=== PATIENT | female | born 1960 | race Caucasian/White ===

== ENCOUNTER 2020-12-27 18:25 | Inpatient (IN) | payer MEDICAID ==
[~2020-12-27] VITALS: Ht 162.6 cm; Wt 72.5 kg
[2020-12-27 18:39] VITALS: BP 101/71
[2020-12-27 19:23] LABS: MPV 9.9 fl. (7.2-11.1)
[2020-12-27 19:25] LABS: HEMATOCRIT 36.2 % (37.0-47.0); HEMOGLOBIN 11.8 gm/dL (12.0-15.0); MCHC 32.6 g/dL (28.0-37.0); MCV 85.7 fL (80.0-100.0); NUCLEATED RBCS 0 /100WBC; PLATELET COUNT* 404 thou/uL (150-400); RBC 4.23 mil/uL (4.20-5.00); RDW-CV 14.8 % (10.5-14.5); WBC 28.8 thou/uL (4.0-11.0)
[2020-12-27 19:33] LABS: CREATININE 0.9 mg/dL (0.6-1.3); POTASSIUM 3.3 mmol/L (3.5-5.1)
[2020-12-27 19:38] LABS: ALBUMIN 2.3 g/dL (3.4-5.0); TOTAL BILIRUBIN 0.5 mg/dL (<0.1-1.0); TOTAL PROTEIN 7.1 g/dL (6.4-8.2)
[2020-12-27 19:44] LABS: ABSOLUTE LYMPHOCYTES 1.7 thou/uL (0.8-5.3); ABSOLUTE MONOCYTES 0.9 thou/uL (0.0-1.2); ABSOLUTE NEUTROPHILS 26.2 thou/uL (1.6-8.1); PLATELET ESTIMATE INCREASED
[2020-12-28 00:15] VITALS: BP 113/49
[2020-12-28 01:37] LABS: CALCIUM 8.2 mg/dL (8.5-10.1); CREATININE 0.8 mg/dL (0.6-1.3); POTASSIUM 3.3 mmol/L (3.5-5.1)
[2020-12-28 01:41] LABS: MAGNESIUM 1.7 mg/dL (1.8-2.4); PHOSPHORUS* 2.7 mg/dL (2.5-4.9)
[2020-12-28 03:26] LABS: URINE BILIRUBIN NEGATIVE (Negative); URINE BLOOD 3+ (Negative); URINE CLARITY CLEAR; URINE COLOR YELLOW; URINE GLUCOSE-RANDOM NEGATIVE (Negative); URINE KETONES NEGATIVE (Negative); URINE LEUKOCYTES-REFLEX NEGATIVE (Negative); URINE NITRITE-REFLEX NEGATIVE (Negative); URINE PROTEIN TRACE (Negative); URINE SPECIFIC GRAVITY 1.025 (1.005-1.030); URINE UROBILINOGEN 0.2 E.U./dl (0.2-1.0)
[2020-12-28 03:33] LABS: AMP/METHAMP POSITIVE (Negative); BARBITURATES Negative (Negative); BENZODIAZEPINES POSITIVE (Negative); COCAINE Negative (Negative); METHADONE Negative (Negative); OPIATES POSITIVE (Negative); PCP Negative (Negative); THC Negative (Negative)
[2020-12-28 04:15] VITALS: BP 107/49
[2020-12-28 04:39] LABS: HYALINE CASTS 0-3 Few /LPF (None Seen); SQUAMOUS 0-3 Few /LPF (0-3)
[2020-12-28 04:40] LABS: BACTERIA-REFLEX 1-9 Few /HPF (None Seen); CRYSTALS None Seen /LPF (None Seen); URINE WBC-REFLEX 0-5 Rare /HPF (0-5)
[2020-12-28 07:51] VITALS: BP 100/54
[2020-12-28 11:41] VITALS: BP 119/38
--- NOTE | 2020-12-28 13:02 | EKG ---
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: [place] : 1960 Requested By: Ewelina Santos Order Number: [id number] MD: Galileo Callaway Measurements Intervals [place] Rate: 99 P: 70 TX: 150 QRS: 40 QRSD: 69 T: 178 QT: 290 QTc: 373 Interpretive Statements Sinus rhythm Left atrial enlargement Borderline repolarization abnormality No previous ECG available for comparison Electronically Signed On 12-28-2020 13:02:29 CDT by Galileo Callaway [email or web address] <ELECTRONICALLY SIGNED> By: Galileo Callaway MD, FAC 12/28/20 1302 17 17 Galileo Callaway MD, [facility] /EPI
[2020-12-28 14:13] VITALS: BP 108/59
[2020-12-28 20:00] VITALS: BP 96/55
[2020-12-29] VITALS: BP 101/52
[2020-12-29 04:00] VITALS: BP 109/53
[2020-12-29 08:00] VITALS: BP 100/60; BP 119/53
[2020-12-29 08:59] LABS: ABSOLUTE LYMPHOCYTES 1.3 thou/uL (0.8-5.3); ABSOLUTE MONOCYTES 1.6 thou/uL (0.0-1.2); ABSOLUTE NEUTROPHILS 15.4 thou/uL (1.6-8.1); BASOPHILS 0.2 %; EOSINOPHILS 0.1 %; HEMATOCRIT 29.4 % (37.0-47.0); LYMPHOCYTES 6.9 %; MCHC 32.6 g/dL (28.0-37.0); MCV 85.9 fL (80.0-100.0); MONOCYTES 8.5 %; MPV 9.3 fl. (7.2-11.1); NUCLEATED RBCS 0 /100WBC; PLATELET COUNT* 370 thou/uL (150-400); POLYS 84.3 %; RBC 3.42 mil/uL (4.20-5.00); RDW-CV 14.7 % (10.5-14.5); WBC 18.3 thou/uL (4.0-11.0)
[2020-12-29 09:03] LABS: HEMOGLOBIN 9.6 gm/dL (12.0-15.0)
[2020-12-29 09:18] LABS: CALCIUM 8.1 mg/dL (8.5-10.1); CREATININE 0.5 mg/dL (0.6-1.3); POTASSIUM 4.2 mmol/L (3.5-5.1)
[2020-12-29 09:22] LABS: ALBUMIN 1.5 g/dL (3.4-5.0); MAGNESIUM 1.6 mg/dL (1.8-2.4); TOTAL BILIRUBIN 0.5 mg/dL (<0.1-1.0); TOTAL PROTEIN 5.1 g/dL (6.4-8.2)
[2020-12-29 12:00] VITALS: BP 119/53
[2020-12-29 20:00] VITALS: BP 113/53
[2020-12-29 23:58] VITALS: BP 108/57
[2020-12-30 03:30] VITALS: BP 100/56
[2020-12-30 07:30] VITALS: BP 159/87
[2020-12-30 08:15] VITALS: BP 111/61
[2020-12-30 09:53] LABS: HEMATOCRIT 26.4 % (37.0-47.0); HEMOGLOBIN 8.5 gm/dL (12.0-15.0); MCH 27.4 pg (26.0-34.0); MCHC 32.2 g/dL (28.0-37.0); MCV 85.1 fL (80.0-100.0); MPV 9.7 fl. (7.2-11.1); NUCLEATED RBCS 0 /100WBC; PLATELET COUNT* 397 thou/uL (150-400); RDW-CV 14.9 % (10.5-14.5); WBC 16.7 thou/uL (4.0-11.0)
[2020-12-30 09:55] LABS: CALCIUM 8.1 mg/dL (8.5-10.1); CREATININE 0.5 mg/dL (0.6-1.3); MAGNESIUM 1.6 mg/dL (1.8-2.4); POTASSIUM 4.3 mmol/L (3.5-5.1)
[2020-12-30 10:25] LABS: ABSOLUTE LYMPHOCYTES 0.3 thou/uL (0.8-5.3); ABSOLUTE MONOCYTES 0.7 thou/uL (0.0-1.2); ABSOLUTE NEUTROPHILS 15.7 thou/uL (1.6-8.1); ANISOCYTOSIS 1+; PLATELET ESTIMATE ADEQUATE; POIKILOCYTOSIS 1+
[2020-12-30 11:36] VITALS: BP 12/64
--- NOTE | 2020-12-30 16:03 | OP ---
[facility] [address] [place] [address] OPERATIVE REPORT Name: TARI BURTON Room: [address] IN M.R.#: [id number] Admission: 12/27/20 Attend Phys: Darren Ibrahim Discharge: Date of : 64 Report #: [id number] THIS REPORT FOR: cc: FAM - No family physician/PCP FAM - No family physician/PCP ~ Cleve Ledesma DO DATE OF SERVICE: 12/29/2020 PREOPERATIVE DIAGNOSIS: Abscess to the right shoulder, extending through the upper arm, rule out deltoid intramuscular abscess and/or sarcoma. POSTOPERATIVE DIAGNOSES: Abscess to the right shoulder, extending through the upper arm, rule out deltoid intramuscular abscess and/or sarcoma. SURGERY PERFORMED: 1. Right shoulder surgical incision and debridement of the shoulder from 7 cm x 6 cm to the bone through a torn deltoid abscess in the posterolateral position. 2. Deltoid biopsy x 2 to rule out sarcoma or other mass. 3. Right upper arm surgical incision and debridement 16 cm x 8 cm ____ bone through the brachialis and brachii muscle of the right upper arm with severely incorporated intramuscular abscess as well as subcutaneous abscess throughout that entire distance extending also posterolaterally toward the triceps all in the subcutaneous plane. Surgery was lavaged with 6000 mL of normal saline through the entire surgical sites, proximal and more distal. 1. Tissue biopsies for rule out mass. 2. Tissue cultures, both of the shoulder area and the anterior area of the arm. The patient also had purulent fluid that was cultured anteriorly and from the shoulder. ANESTHESIA: General. ESTIMATED BLOOD LOSS: 100 mL, did receive 1 gram of TXA preoperatively as well. She has been on scheduled antibiotics. COMPLICATIONS: No complications. Hemovac drain x 2 to the right upper extremity. DESCRIPTION OF PROCEDURE: Prior to surgery, the patient is a known IV drug abuser. She did have multiple areas of abscess that had broken through the skin and was draining purulent material from the anterior upper arm region extending just above the elbow approximately 2 inches as where it started and extended all the way up anteriorly extending slightly posterolaterally [place] [address] OPERATIVE REPORT Name: TUSHARTARI BEARD Room: [address] IN [facility].#: [id number] Admission: 12/27/20 Attend Phys: Darren Ibrahim Discharge: Date of : 64 Report #: [id number] puncture sites that are broken through. The deltoid had a large palpable soft tissue fluid contour as well in the posterolateral aspect of the deltoid region. The patient's intraoperative findings correlated with large abscess through the deltoid muscle actually had pulled off of the acromion, it had split at least 4 cm in length from the acromion distally as well as extending the edges then and separation about 4 cm. Necrotic tissue was noted beneath that as well. On the anterior approach multiple areas of necrotic tissue through the brachii muscle was noted and brachialis and this was all excised as well. Thick white purulence was noted throughout this entire surgical site. There was no bony destructive changes. Rotator cuff was definitely intact as well. SURGERY IN DETAIL: The patient was taken to the operating room and placed on the table again the benefit of general anesthetic underwent a Betadine scrub and Betadine wash as well as sterile drape in her right upper extremity. Surgery timeout was called and verified by everyone in the room. I extended proximally and started their first made a longitudinal incision right over the palpable mass area starting at the acromion and extending distally. Care was taken not to go below 5 cm to protect that axillary nerve. Once the standard subcutaneous plane large amount of purulent fluid was cultured. I did go ahead and sucked out as much of that purulence as I could to the subcutaneous plane, I found the deltoid. Two samples of tissue were taken, one anteriorly and one posteriorly from the deltoid and sent off for pathology for permanent. #2 I did do tissue cultures and then deep that was noted in the bursal region as well as that upper arm area that was necrotic on the posterior deltoid area. This all area was cleaned out very good by scissors technique by massaging and by curettage. I got down to healthy viable tissue at this plane. Now, I went through the anterior aspect of the arm and made a longitudinal incision just above the elbow extending proximally as stated and I did extend that for at least 16 cm through skin and subcutaneous tissues. There were necrotic edges that where the abscess broke through were all excised by sharp dissection. Scissors were used to remove all the necrotic muscle that was noted in this region in multiple areas. I got down to nice healthy, pink, viable muscle. This area was then copiously irrigated with normal saline again, at least 5000 mL to clean smooth surface from the top to bottom. Once this was all done, I did go ahead and placed two Hemovac drains deep within these wound areas bringing out the catheters distally. I closed her ulnar with Prolene suture to the skin. It was incised. Xeroform, 4 x 4's, Kerlix, Mike wrap dressing applied to the upper extremity. This patient was transferred to the table and taken to recovery in stable condition. All needle, instrument, and sponge counts correct. The patient most definitely had an abscess through the entire upper extremity that was subcutaneous planes connected as well as the abscess through the deltoid muscle was noted, which was completely debrided as well as the brachii muscles of the upper extremity [place] [address] OPERATIVE REPORT Name: TARI BURTON Room: [address] IN .R.#: [id number] Admission: 12/27/20 Attend Phys: Darren Ibrahim Discharge: Date of : 64 Report #: [id number] I attest I was present for all critical aspects of surgery. Needle, instrument, and sponge counts were correct. <ELECTRONICALLY SIGNED> By: Cleve Ledesma DO 12/30/20 1603 1525 1623Croshni Ledesma DO /jonathan
[2020-12-30 16:13] VITALS: BP 95/57
[2020-12-30 17:07] LABS: HIV-1/HIV-2 ANTIBODY Non Reactive (Non Reactive)
[2020-12-30 19:30] VITALS: BP 100/56
[2020-12-31] VITALS: BP 128/52
[2020-12-31 08:17] VITALS: BP 114/63
[2020-12-31 11:37] VITALS: BP 120/79
[2020-12-31 11:51] LABS: HEMATOCRIT 27.6 % (37.0-47.0); HEMOGLOBIN 8.8 gm/dL (12.0-15.0); MCH 27.4 pg (26.0-34.0); MCHC 31.8 g/dL (28.0-37.0); MCV 86.3 fL (80.0-100.0); MPV 9.3 fl. (7.2-11.1); RBC 3.2 mil/uL (4.20-5.00); RDW-CV 15.2 % (10.5-14.5); WBC 13.3 thou/uL (4.0-11.0)
[2020-12-31 11:58] LABS: CALCIUM 8.6 mg/dL (8.5-10.1); CREATININE 0.6 mg/dL (0.6-1.3); MAGNESIUM 1.8 mg/dL (1.8-2.4); PHOSPHORUS* 2.8 mg/dL (2.5-4.9); POTASSIUM 4.3 mmol/L (3.5-5.1)
[2020-12-31 16:04] VITALS: BP 109/53
[2020-12-31 19:30] VITALS: BP 109/63
[2020-12-31 23:17] VITALS: BP 111/70
[2021-01-01 04:32] VITALS: BP 118/71; BP 135/94
[2021-01-01 04:39] VITALS: BP 135/94
[2021-01-01 05:45] LABS: HEMATOCRIT 25.5 % (37.0-47.0); HEMOGLOBIN 8.4 gm/dL (12.0-15.0); MCH 27.9 pg (26.0-34.0); MCHC 33.1 g/dL (28.0-37.0); MCV 84.4 fL (80.0-100.0); MPV 8.3 fl. (7.2-11.1); RBC 3.02 mil/uL (4.20-5.00); RDW-CV 14.9 % (10.5-14.5); WBC 11.4 thou/uL (4.0-11.0)
[2021-01-01 06:05] LABS: CALCIUM 8.2 mg/dL (8.5-10.1); CREATININE 0.5 mg/dL (0.6-1.3); POTASSIUM 3.9 mmol/L (3.5-5.1)
[2021-01-01 07:20] VITALS: BP 119/92
[2021-01-01 11:39] VITALS: BP 128/85
[2021-01-01 15:49] VITALS: BP 177/105
[2021-01-01 20:00] VITALS: BP 116/64
[2021-01-02 00:06] VITALS: BP 105/61
[2021-01-02 03:53] VITALS: BP 120/80
[2021-01-02 08:26] VITALS: BP 126/69
[2021-01-02 11:44] VITALS: BP 126/69
[2021-01-02 12:03] LABS: ABSOLUTE BASOPHILS 0.1 thou/uL (0.0-0.2); ABSOLUTE EOSINOPHILS 0.1 thou/uL (0.0-0.7); ABSOLUTE LYMPHOCYTES 1.6 thou/uL (0.8-5.3); ABSOLUTE MONOCYTES 0.9 thou/uL (0.0-1.2); ABSOLUTE NEUTROPHILS 10.7 thou/uL (1.6-8.1); BASOPHILS 0.5 %; EOSINOPHILS 0.7 %; HEMATOCRIT 27.6 % (37.0-47.0); HEMOGLOBIN 9.1 gm/dL (12.0-15.0); LYMPHOCYTES 12.1 %; MCH 27.8 pg (26.0-34.0); MCV 84.2 fL (80.0-100.0); MONOCYTES 6.8 %; MPV 8.3 fl. (7.2-11.1); NUCLEATED RBCS 0 /100WBC; POLYS 79.9 %; RBC 3.28 mil/uL (4.20-5.00); RDW-CV 14.6 % (10.5-14.5); WBC 13.4 thou/uL (4.0-11.0)
[2021-01-02 12:05] LABS: PLATELET COUNT* 731 thou/uL (150-400)
[2021-01-02 12:20] LABS: ALBUMIN 1.9 g/dL (3.4-5.0); CALCIUM 8.3 mg/dL (8.5-10.1); CREATININE 0.6 mg/dL (0.6-1.3); POTASSIUM 4.2 mmol/L (3.5-5.1); TOTAL BILIRUBIN 0.2 mg/dL (<0.1-1.0); TOTAL PROTEIN 6.2 g/dL (6.4-8.2)
[2021-01-02 18:24] VITALS: BP 130/78
[2021-01-02 20:00] VITALS: BP 154/67
[2021-01-03 00:34] VITALS: BP 118/64
[2021-01-03 04:00] VITALS: BP 126/72
[2021-01-03 05:31] LABS: CALCIUM 8.3 mg/dL (8.5-10.1); CREATININE 0.6 mg/dL (0.6-1.3); POTASSIUM 3.6 mmol/L (3.5-5.1)
[2021-01-03 05:38] LABS: HEMOGLOBIN 7.8 gm/dL (12.0-15.0); MCH 27.9 pg (26.0-34.0); MCHC 32.4 g/dL (28.0-37.0); MPV 9.1 fl. (7.2-11.1); RBC 2.79 mil/uL (4.20-5.00); RDW-CV 14.7 % (10.5-14.5); WBC 10.3 thou/uL (4.0-11.0)
[2021-01-03 08:05] VITALS: BP 146/78
[2021-01-03 12:15] VITALS: BP 156/68
--- NOTE | 2021-01-03 17:07 | PATH ---
[address] [address] PATHOLOGY RPT PROCEDURE Name: GONZALEZPAKOTARI Room: [address] IN M.R.#: [id number] Admission: 12/27/20 Date of : 64 Discharge: Report #: [id number] Path Case #: [id number] [facility] Accession Number: [id number] . 01 Material submitted: . arm - TISSUE LATERAL DELTOID RIGHT ARM. Modifiers: lateral, right, DELTOID . 01 Clinical history: . INCISION AND DRAINAGE EXTREMITY WITH IRRIGATION INFECTION RIGHT UPPER ARM R/O MASS SARCOMA CELLULITIS RIGHT UPPER ARM, SEPSIS . 02 Diagnosis: Tissue lateral deltoid right arm: - Benign skeletal muscle and fibrofatty tissue with necrosis and extensive acute inflammation. (LUKE/db; 01/03/2021) LBQ 01/03/2021 1330 Local . 02 Electronically signed: . John Schaeffer MD, Pathologist NPI- [id number] . 01 Gross description: . The specimen is received in formalin, labeled "TARI BURTON, and tissue lateral deltoid right arm rule out mass sarcoma" and consists of 5 irregular fragments of soft bauer-mayen tissue with the largest possibly covered by skin. The fragments range from 1.5 x 1 x 0.2 cm up to 3 x 1.5 x 1.1 cm. All fragments are inked black. The cut surfaces are mayen and focally congested. Entirely submitted in 7 cassettes. A1-A5 smaller fragments A6-A7 largest fragment(ML; 12/31/2020) LAMBERT/LAMBERT 01/03/2021 1329 Local . 02 Pathologist provided ICD-10: M60.9 . 02 CPT . 556062 Specimen Comment: A courtesy copy of this report has been sent to [phone] Specimen Comment: [phone] Specimen Comment: Report sent to / DR ACOSTA Performed at: [address] [facility], [place] [id number] MD Angel Kenney MD Phone: [phone] [place] [address] PATHOLOGY RPT PROCEDURE Name: TARI BURTON Room: [address] IN [facility].#: [id number] Admission: 12/27/20 Date of : 64 Discharge: Report #: [id number] Path Case #: [id number] Performed at: 02 [facility] Dain Lagunas [address], [place] [id number] MD John cShaeffer MD Phone: [phone]
[2021-01-03 20:00] VITALS: BP 125/83
[2021-01-04] VITALS (8 sets, daily range): BP systolic 100–125; BP diastolic 49–69
[2021-01-04 04:08] LABS: CALCIUM 7.8 mg/dL (8.5-10.1); CREATININE 0.7 mg/dL (0.6-1.3); POTASSIUM 3.8 mmol/L (3.5-5.1)
[2021-01-04 04:09] LABS: RBC 2.47 mil/uL (4.20-5.00)
[2021-01-04 04:29] LABS: HEMATOCRIT 20.9 % (37.0-47.0); MCH 27.8 pg (26.0-34.0); MCHC 32.9 g/dL (28.0-37.0); MCV 84.6 fL (80.0-100.0); PLATELET COUNT* 646 thou/uL (150-400); RDW-CV 14.6 % (10.5-14.5); WBC 12.4 thou/uL (4.0-11.0)
[2021-01-04 04:52] LABS: HEMOGLOBIN 6.9 gm/dL (12.0-15.0)
[2021-01-04 09:54] LABS: ABSOLUTE LYMPHOCYTES 1.2 thou/uL (0.8-5.3); ABSOLUTE MONOCYTES 0.9 thou/uL (0.0-1.2); ABSOLUTE NEUTROPHILS 10.3 thou/uL (1.6-8.1); EOSINOPHILS 0.1 %; LYMPHOCYTES 9.3 %; MONOCYTES 7.5 %; POLYS 83.1 %
[2021-01-04 13:39] LABS: HEMOGLOBIN 9.3 gm/dL (12.0-15.0)
[2021-01-05 00:01] VITALS: BP 121/73
[2021-01-05 04:12] VITALS: BP 120/66
[2021-01-05 04:49] LABS: CALCIUM 9.4 mg/dL (8.5-10.1); CREATININE 0.6 mg/dL (0.6-1.3); POTASSIUM 3.4 mmol/L (3.5-5.1)
[2021-01-05 05:00] LABS: HEMATOCRIT 24.8 % (37.0-47.0); HEMOGLOBIN 8.3 gm/dL (12.0-15.0); MCH 28.1 pg (26.0-34.0); MCHC 33.4 g/dL (28.0-37.0); MCV 84.1 fL (80.0-100.0); MPV 8.6 fl. (7.2-11.1); RBC 2.94 mil/uL (4.20-5.00); RDW-CV 15.1 % (10.5-14.5); WBC 10.6 thou/uL (4.0-11.0)
[2021-01-05 08:15] VITALS: BP 125/67
[2021-01-05] MEDS ORDERED: KEFLEX500 M1 PO (10:20)
[2021-01-05] MEDS ORDERED: ROXICODONE15 MG PO (10:20)
[2021-01-05] MEDS ORDERED: FLAGYL500 M1 PO (10:20)
[2021-01-05] MEDS ORDERED: ROCEPHIN 11 GM/1001 IV (10:24)
[2021-01-05 10:28] VITALS: BP 125/67
[2021-01-05 11:17] VITALS: BP 125/67
[2021-01-05 12:38] VITALS: BP 125/67
--- NOTE | 2021-01-06 13:58 | OP ---
[address] [address] OPERATIVE REPORT Name: TARI BURTON Room: [address] IN M.R.#: [id number] Admission: 12/27/20 Attend Phys: Darren Ibrahim Discharge: 01/05/21 Date of : 64 Report #: [id number] THIS REPORT FOR: cc: FAM - No family physician/PCP FAM - No family physician/PCP Cleve Ledesma DO ~ DATE OF SERVICE: 01/03/2021 PREOPERATIVE DIAGNOSES: Previous streptococcus infection of the right upper extremity with abscess to the right upper arm, anterior, posterior and deltoid region. POSTOPERATIVE DIAGNOSES: Previous streptococcus infection of the right upper extremity with abscess to the right upper arm, anterior, posterior and deltoid region. SURGERY PERFORMED: Excisional debridement of the necrotic skin edges with a delayed primary closure with repeat debridement deep and delayed closure. SURGEON: Cleve Ledesma DO LAPPING MACHINE TENDER: Edgar German DO SECOND TEXTILE COLORIST DYER: Blake Townsend DO ANESTHESIA: General anesthetic. The patient has been on scheduled antibiotics. ESTIMATED BLOOD LOSS: 50 mL. COMPLICATIONS: She has no complications. DRAINS: She has no drain. SPECIMENS: She has no specimens today. GROSS FINDINGS: On repeat examination of right upper arm before surgery while the patient was asleep demonstrated necrotic skin edges, both at the deltoid surgical site and the upper arm anterior surgical site. After removing the sutures, the deep area still did have some deeper necrosis at the superficial skin area, subcutaneous area, down to the level of the muscle with some very friable muscle edges that needed to be debrided as well anteriorly across the brachiae region. The patient still had intact neurovascular exam pre-surgery. The patient at this point in time did not have any proximal humerus deltoid muscle necrosis area today, just a friable area where the previous abscess [place] [address] OPERATIVE REPORT Name: TARI BURTON Room: [address] IN [facility]#: [id number] Admission: 12/27/20 Attend Phys: Darren Ibrahim Discharge: 01/05/21 Date of : 64 Report #: [id number] Surgery for excision and debridement: The patient was taken to the operating room and placed on table, given general anesthetic and placed in a beach chair position and underwent a Betadine scrub and paint and then a sterile draping for right upper extremity. Time-out was called and verified by everyone in the room. The excisional debridement by sharp dissection with a #15 blade scalpel, 10 blade scalpel through the skin and subcutaneous tissues of both the deltoid incision area, which was 7 cm long x 1.5 cm off each side was removed down to the deltoid muscle. The anterior skin edges, subcutaneous tissue was again a sharp debridement as well with a scalpel for a total of 13 cm in length, 0.5 cm off each side of that incision as well. SURGERY IN DETAIL: The patient was taken to the operating room and placed in the beach chair position after she was draped and the skin edges were debrided. We copiously irrigated the proximal aspect of the surgical site at the deltoid. Starting there, we removed some small and subcutaneous necrotic very friable areas that were already being compromised and so those were removed by rongeur. I eventually did close that deltoid with 0 Prolene suture x 2. I just jagged those skin edges with the abscess through it. The patient at the anterior aspect of the arm, we debrided that again deep with a rongeur. Nice healthy bleeding tissue was isolated. She was given one round of TXA intraoperatively. Hemostasis was easily maintained. Surgery continued then with a 12,000 mL normal saline irrigation lavage throughout both surgical sites proximal and distal. I did do 2-0 Monocryl initially to close subcutaneous layers and then 0 Prolene suture in [id number] fashion for better hold on her. Xeroform, 4 x 4s, Kerlix, ABD, Mike wrap dressing from the wrist to the shoulder area was applied. This will help secondary spacing. The patient was transferred off the table, taken to recovery in stable condition. I attest I was present for all critical aspects of surgery. Needle, instrument, sponge counts correct on the patient. She will be maintained on medications as the Infectious Disease has stated. <ELECTRONICALLY SIGNED> By: Cleve Ledesma DO 01/06/21 1358 1419 [id number] Ledesma DO /jonathan
== END 2021-01-05 12:55 | disposition home health service (06) | DRG 853 ==
LOC: M.ERS 18:25 → M.TBA-ER 20:27 → M.2W 12-28 14:25
PROVIDERS: Internal Medicine; Nurse Practitioner Family; Orthopaedic Surgery; ADMIT Internal Medicine; ATTEND Internal Medicine
DX: A41.9 Sepsis, unspecified organism (principal); A48.0 Gas gangrene; B19.21 Unspecified viral hepatitis C with hepatic coma; L03.113 Cellulitis of right upper limb; E87.1 Hypo-osmolality and hyponatremia; E44.0 Moderate protein-calorie malnutrition; L02.413 Cutaneous abscess of right upper limb; F17.210 Nicotine dependence, cigarettes, uncomplicated; J44.9 Chronic obstructive pulmonary disease, unspecified; E87.6 Hypokalemia; F41.9 Anxiety disorder, unspecified; N18.30 Chronic kidney disease, stage 3 unspecified; R73.9 Hyperglycemia, unspecified; F31.9 Bipolar disorder, unspecified; D64.9 Anemia, unspecified; Z20.822 Contact with and (suspected) exposure to COVID-19